=== PATIENT | female | born 1960 | race Caucasian/White ===

== ENCOUNTER 2017-01-04 08:03 | Day surgery (SDC) | payer MEDICARE, OTHER ==
--- NOTE | ~2017-01-04 | EGD ---
EGD REPORT [facility] [address] [address] NAME: PHYLLIS MOTLEY : 60 STATUS : REG [facility] PAT#: [id number] AGE: 56 ADM/REG DATE : 01/04/17 MR#: [id number] REPORT SERV DATE: 01/04/17 DICTATED BY: SABINO TRAYLOR DATE: 01/04/17 REPORT STATUS : Draft [facility]ANSCRIBED [facility]: [facility] DATE: 01/04/17 Endoscopy Center Patient Name: Phyllis Motley Date of : 1960 Attending MD: SABINO TRAYLOR MD Procedure Date No Time: 01/04/2017 Procedure: Upper GI endoscopy Indications: Dysphagia, Esophageal reflux Referring MD: Rossi HENSON MD Medicines: Monitored Anesthesia Care Complications: No immediate complications. Procedure: Pre-Anesthesia Assessment: - ASA Grade Assessment: III - A patient with severe systemic disease. After obtaining informed consent, the endoscope was passed under direct vision. Throughout the procedure, the patient's blood pressure, pulse, and oxygen saturations were monitored continuously. The GIF [id number] was introduced through the mouth, and advanced to the second part of duodenum. The upper GI endoscopy was accomplished without difficulty. The patient tolerated the procedure well. Findings: No endoscopic abnormality was evident in the esophagus to explain the patient's complaint of dysphagia. It was decided, however, to proceed with dilation of the entire esophagus. A guidewire was placed and the scope was withdrawn. Dilation was performed with a Savary dilator with no resistance at 48 Fr. Estimated blood loss: none. Patchy moderately erythematous mucosa without bleeding was found in the gastric antrum. Biopsies were taken with a cold forceps for histology. A single 8 mm pedunculated polyp with no stigmata of recent bleeding was found in the gastric body. Biopsies were taken with a cold forceps for histology. The first part of the duodenum and 2nd part of the duodenum were normal. The cardia and gastric fundus were normal on retroflexion. Impression: - No endoscopic esophageal abnormality to explain patient's dysphagia. Esophagus dilated. Dilated. - Erythematous mucosa in the antrum. Biopsied. - A single gastric polyp. Biopsied. - Normal first part of the duodenum and 2nd part of the duodenum. Recommendation: - Follow an antireflux regimen. EGD REPORT [address] [place]. [address] NAME: PHYLLIS MOTLEY : 60 STATUS : [facility] PAT#: [id number] AGE: 56 ADM/REG DATE : 01/04/17 MR#: [id number] REPORT SERV DATE: 01/04/17 DICTATED BY: SABINO TRAYLOR DATE: 01/04/17 REPORT STATUS : Draft TRANSCRIBED BY: [employer] DATE: 01/04/17 - Discontinue Reglan (metoclopramide). - Await pathology results. - Return to GI clinic in 2 months. Procedure Code(s): --- Professional --- 46802, Esophagogastroduodenoscopy, flexible, transoral; with insertion of guide wire followed by passage of dilator(s) through esophagus over guide wire 14356, Esophagogastroduodenoscopy, flexible, transoral; with biopsy, single or multiple Diagnosis Code(s): --- Professional --- R13.10, Dysphagia, unspecified K31.9, Disease of stomach and duodenum, unspecified K31.7, Polyp of stomach and duodenum K21.9, Gastro-esophageal reflux disease without esophagitis CPT copyright 2013 [employer]. All rights reserved. The codes documented in this report are preliminary and upon dental appliance mechanic review may be revised to meet current compliance requirements. SABINO TRAYLOR MD 01/04/2017 10:54 AM This report has been signed electronically. Number of Addenda: 0 Note Initiated On: 01/04/2017 10:34 AM Scope Withdrawal Time 0 hours 0 minutes 0 seconds [address] [place] [address]
[~2017-01-04 08:03] MED LIST: *UNABLE1; ALEVE220 MG PO; AMOXICILLIN PO; ASA5GR PO; ASAB PO; AT25 PO; BENTYL10 PO; BUDESONIDE INH; CALCIUM PO; CALTRA600D PO; CALTRAT600 PO; CELEXA20 PO; CENTRUM TAB1 TAB PO; COREG3 PO; COZ25 PO; COZ50 PO; DEP250 PO; DYMISTA NASAL S23 GM NAS; FLEX PO; FORMOTEROL INH; HALF81 PO; HUMALOG SC; HUMALOGPEN SC; IBU-200200 MG PO; IBU800 PO; LANTUS SC; LEVEMFLXPN SC; LEVEMIR SC; LEVSINTAB PO; LOP50 PO; LORT7 PO; MULTIVIT/MIN PO; NEUR100 PO; NITROSTAT0.4 MG SL; NORCO1 TA1 PO; NORCO1 TA2 PO; NOVOLOG SC; OTC MELATONIN PO; P20 PO; PANTOPRAZOLE PO; PCET PO; PLAVIX PO; PR12.5 PO; PRILO PO; PROAIR HFA INH; PROBIOTIC OTC PO; PROTONIX PO; RECLAST; RECLAST IV; REG PO; REG5 PO; RESTORIL30 MG OR; RESTORIL30 MG PO; SEROQUEL1C PO; SEROQUEL50 MG PO; SYMBICORT 160/41 INH INH; SYMBICORT INHALER INH; TOUJEO SQ; TRIAMCINOLON0.025 % TOP; WELLBUTRIN200 MG PO; WELLSR150 PO; X5 PO; XANAX1 MG PO; ZETIA PO; ZOCOR10 PO; ZOCOR20 PO; ZOFRAN ODT4 MG PO; [UNRECOGNIZED DRUG - OTHER] PO; [UNRECOGNIZED DRUG - OTHER] PO; [UNRECOGNIZED DRUG - OTHER] PO
== END 2017-01-04 23:59 | disposition home or self-care (01) ==
LOC: DMU 08:03
PROVIDERS: Internal Medicine Gastroenterology
PROC: 0D758ZZ Dilation of Esophagus, Via Natural or Artificial Opening Endoscopic (ICD-10-PCS; principal; 2017-01-04 09:30)
PROC: 0DB68ZX Excision of Stomach, Via Natural or Artificial Opening Endoscopic, Diagnostic (ICD-10-PCS; 2017-01-04 09:30)
DX: K31.7 Polyp of stomach and duodenum (principal); K21.9 Gastro-esophageal reflux disease without esophagitis; K31.9 Disease of stomach and duodenum, unspecified; I10 Essential (primary) hypertension; I69.311 Memory deficit following cerebral infarction; E11.9 Type 2 diabetes mellitus without complications; J45.909 Unspecified asthma, uncomplicated; F41.9 Anxiety disorder, unspecified; F32.9 Major depressive disorder, single episode, unspecified; F44.4 Conversion disorder with motor symptom or deficit; Z87.891 Personal history of nicotine dependence; Z91.048 Other nonmedicinal substance allergy status; Z79.82 Long term (current) use of aspirin; Z79.4 Long term (current) use of insulin; Z79.899 Other long term (current) drug therapy
CPT/HCPCS: 82962; 88305; A9270-GY; J2405

== ENCOUNTER 2017-01-14 23:25 | Inpatient (IN) | payer MEDICARE, OTHER ==
--- NOTE | ~2017-01-14 | DS ---
Discharge Summary [facility] [address] [place]. [address] NAME: GARCIA MOTLEY : 60 STATUS : [facility]#: [id number] AGE: 56 ADM/REG DATE : 01/15/17 MR#: [id number] REPORT SERV DATE: 01/20/17 DICTATED BY: VENUS MORIN DATE: 01/20/17 REPORT STATUS : Draft TRANSCRIBED BY: MODL DATE: 01/20/17 ADMISSION DATE: 01/15/2017 DISCHARGE DATE: 01/20/2017 DIAGNOSES ON ADMISSION: 1. Severe intractable nausea and vomiting. 2. Diarrhea. 3. Abdominal pain. 4. Mildly elevated lipase. 5. Insulin-dependent diabetes mellitus with hyperglycemia. 6. Hypertension. 7. Gastroparesis secondary to diabetes. 8. Gastroesophageal reflux disease. 9. History of bipolar disorder with conversion disorder. 10.Depression and anxiety. DIAGNOSES ON DISCHARGE: 1. Nausea and vomiting present on admission resolved secondary to gastroenteritis. Diarrhea present on admission resolved. 2. Abdominal pain, improved. 3. Mildly elevated lipase, improved next day. 4. Insulin-dependent diabetes. Blood sugars improved. 5. Hypertension, controlled. 6. Gastroparesis secondary to diabetes, resolved. 7. History of bipolar disorder with conversion disorder, improved. 8. Anxiety, improved. CONSULTANTS ON THE CASE: Motor Vehicle Emissions Inspector, Dr. Jakob Parr. Nurse practitioner, Kiran. IMAGING STUDIES DONE DURING THIS HOSPITALIZATION: CT of the brain without contrast done on admission, unremarkable CT of the head, no acute intracranial pathology. CT of the abdomen and pelvis without contrast done on 01/14/2017 did not show any acute abdominal or pelvic pathology. No obstruction pattern. Stable postsurgical changes of appendectomy and hysterectomy. Ultrasound of the abdomen done on 01/17/2017 showed small cholesterol polyp in the gallbladder, filling defect in the liver, probable benign hemangioma. If there is a need for further verification, an MRI or CT dynamic study was recommended, otherwise no any abnormality. HISTORY OF PRESENT ILLNESS: Per dictation of Dr. Potter on 01/14/2017. HOSPITAL COURSE: Briefly, the patient was started on IV fluid hydration on admission. Her lipase on admission was 700, came down to 331. The patient was still having nausea and vomiting episodes, as well as she has anxiety and bipolar disorder. She had also diarrhea. GI evaluated this patient, was seen by Dr. Parr who thinks that the patient had Discharge Summary [facility] [address] [place]. [address] NAME: GARCIA MOTLEY : 60 STATUS : ADM IN PAT#: [id number] AGE: 56 ADM/REG DATE : 01/15/17 MR#: [id number] REPORT SERV DATE: 01/20/17 DICTATED BY: VENUS MORIN DATE: 01/20/17 REPORT STATUS : Draft TRANSCRIBED BY: [employer] DATE: 01/20/17 gastroenteritis more likely a viral and nurse practitioner of Gastroenterology, Kiran was following the patient on a daily basis. The patient improved on 01/18/2017. Her diet was advanced. Yesterday, she told me she would like to wait one more day because she was still having nausea, but today, she significantly improved and she wants to go home. Her abdominal studies were negative and she improved. She was started on Questran and her diarrhea improved. Stool studies have been negative for any infection, so she is doing well and would recommend to continue Questran as well as Bentyl for a possible abdominal spasms, and I wrote a prescription for Phenergan. The patient's blood sugar initially was low because she was not eating much but now, she started to eat and blood sugar today in 190s. I told the patient that at home she uses higher dose of insulin, but she is starting to eat better, so I recommended to start from 5 units of Humalog before meals and increase it gradually depending on the blood sugar as well as I recommended to decrease the dose of her home Toujeo long-acting insulin to 15 units daily and then, she can increase the dose gradually to her home dose depending on the blood sugar. She needs to follow up with Dr. Granados in a week for further adjustment of her insulin as well as followup for Dr. Romero in two to three weeks for evaluation of her possible liver hemangioma on the ultrasound on the abdomen, which was done inpatient. DISCHARGE MEDICATIONS: Carvedilol 6.25 p.o. twice a day; Bentyl 20 mg p.o. b.i.d. before breakfast and supper; cholestyramine 4 mg p.o. at bedtime; decrease Toujeo to 15 units a day; losartan 25 mg daily; melatonin 3 mg at bedtime; simvastatin 20 mg a day; Florastor one capsule p.o. twice a day; decrease Humalog to 5 units before meals; Xanax 0.5 mg three times daily p.r.n. for anxiety; Zofran 4 mg p.o. three times daily p.r.n. for nausea; Phenergan 12.5 p.o. q.6 hours p.r.n. for nausea, total of 20 pills, no refills, given prescription; hydrocodone with acetaminophen 7.5/325 one tablet p.o. four times daily p.r.n. for pain, it is her home medications that she will continue at home. Prescription given for Protonix 40 mg daily, cholestyramine 4 mg p.o. at bedtime, Bentyl 20 mg p.o. before breakfast and supper, and Phenergan 12.5 p.o. q.4 hours p.r.n. for nausea. The patient was discharged in stable condition. I spent 45 minutes on discharge. MG/MODL Venus Morin M.D. / [id number] CC: Bentley Juarez M.D. James Scott Manton, M.D.
--- NOTE | ~2017-01-14 | HP ---
History And Physical [facility] [address] [facility] [address]. [address] NAME: GARCIA MOTLEY : 60 STATUS : ADM [facility] PAT#: [id number] AGE: 56 ADM/REG DATE : 01/14/17 MR#: [id number] REPORT SERV DATE: 01/15/17 DICTATED BY: SINAI OVALLES DATE: 01/15/17 REPORT STATUS : Draft TRANSCRIBED BY: MODL DATE: 01/15/17 DATE OF ADMISSION: 01/14/2017 CHIEF COMPLAINT: Intractable nausea, vomiting, diarrhea, and abdominal pain. HISTORY OF PRESENT ILLNESS: This is a 56-year-old female with history of diabetic gastroparesis neuropathy and other complications from diabetes, poorly controlled insulin- dependent diabetes, presents to the emergency room at [facility] with the above-mentioned complaint. History is obtained from the patient and reviewing data available on the [employer] system. According to Mrs. Motley, she had been in the usual state of health until last week when she had nausea, vomiting, and diarrhea last week. She saw her physician Dr. Humble Granados, who put her on oral Phenergan and this subsided. She was doing fine since then, went back to her activities of daily living. Then again about two days ago, she started having severe nausea and vomiting which was intractable. Yesterday, she started having diarrhea as well which she describes as watery, not foul smelling without any blood. She says she went numerous times and has become very tired and weak, unable to do anything. Meanwhile the vomiting is also continued which is actually bilious without any blood as well. This was also accompanied by upper abdominal pain. She finally decided to come to the emergency room to be evaluated. In the emergency room, initial workup including CT scan of her abdomen and pelvis were within normal limits. She had an elevated lipase of 783. All her stool studies including stool for Clostridium difficile, Cryptosporidium, and Giardia were all negative. She was given multiple intravenous doses of Zofran and continues to vomit. She was given a bolus of fluids and Hospitalist Service is asked to admit her for further evaluation and treatment. At the time of my evaluation, she continued to have nausea and vomiting with diarrhea. She also had abdominal pain. She denied any chest pain, palpitations, or orthopnea. She had no cough, hemoptysis, night sweats, or weight loss. She has not had any recent falls or loss of consciousness. Denied any fevers, chills, and dysuria. She denied any hematemesis, hematochezia, or hematuria. No other history of recent travel or exposures other than those mentioned above. PAST MEDICAL HISTORY: Significant for history of poorly controlled insulin-dependent diabetes mellitus, gastroparesis secondary to diabetes neuropathy, gastroesophageal reflux disease, depression and anxiety, bipolar disease with conversion disorder, and history of CVA in the past as well. SOCIAL HISTORY: She does not smoke, drink, or use recreational drugs per the patient. FAMILY HISTORY: Noncontributory. MEDICATIONS: At home were reviewed by me in the chart today and reordered by me. History And Physical [address] [address] NAME: GARCIA MOTLEY : 60 STATUS : ADM [facility] PAT#: [id number] AGE: 56 ADM/REG DATE : 01/14/17 MR#: [id number] REPORT SERV DATE: 01/15/17 DICTATED BY: SINAI OVALLES DATE: 01/15/17 REPORT STATUS : Draft TRANSCRIBED BY: ALEJANDRO DATE: 01/15/17 REVIEW OF SYSTEMS: Review of systems is as in history of present illness. All other systems were reviewed in detail and are quite unremarkable. PHYSICAL EXAMINATION: GENERAL: This is a pleasant 56-year-old, not in any acute distress. She appears very weak and tired. HEENT: Head is atraumatic, normocephalic. She is alert, awake, and oriented to time, place, and person. Pupils are equal, reacting to light and accommodating. External ocular muscles are intact. Membranes are moist and pink. Sclerae are nonicteric. NECK: Supple with no jugular venous distention, lymphadenopathy, or thyromegaly. LUNGS: Clear to auscultation with no wheezes, rubs, or crackles. HEART: Heart sounds were regular with no murmurs, rubs, or gallops. ABDOMEN: Soft, nontender. Bowel sounds are present. EXTREMITIES: Showed no cyanosis, clubbing, or edema. NEUROLOGIC: Grossly intact. No focal sensory or motor deficits. Higher functions appeared intact. Gait was not examined today at this time. VITAL SIGNS: Her vital signs today showed a temperature of 100.6, pulse 115, respirations 20 a minute, and blood pressure upon arrival was 98/66. Oxygen saturations were 95% breathing 2 L of oxygen via nasal cannula. LABORATORY DATA: Reviewed on the [employer] system showed a normal CMP with a blood glucose of 201, albumin was 3.3, alkaline phosphatase was 75, ALT 19, AST was 12, and lipase today was 783. Lactate was 1.4 today. CBC was essentially within normal limits. Urinalysis was unremarkable today. Films of the CT scan of the brain and CT of the abdomen were reviewed by me on the PACS today and interpreted by me. Per my interpretation, there is no acute intracranial or pelvic pathology at this time and the CT of the brain did not reveal any acute intracranial pathology at this time. Please see Radiology report for details. IMPRESSION: 1. Severe intractable nausea and vomiting. 2. Diarrhea. 3. Abdominal pain. 4. Elevated lipase. 5. Insulin-dependent diabetes mellitus with hyperglycemia. 6. Hypertension. 7. Gastroparesis secondary to diabetes. 8. Gastroesophageal reflux disease. 9. Bipolar disease with conversion disorder. 10.Depression and anxiety. PLAN: We will admit Ms. Motley to the Hospitalist Service for a 24-hour observation period. We will start her on aggressive volume replacement, give her a liter of lactated Ringer's bolus and continue on with normal saline as well. For her intractable nausea and vomiting, History And Physical [address] [address] NAME: GARCIA MOTLEY : 60 STATUS : ADM [facility] PAT#: [id number] AGE: 56 ADM/REG DATE : 01/14/17 MR#: [id number] REPORT SERV DATE: 01/15/17 DICTATED BY: SINAI OVALLES DATE: 01/15/17 REPORT STATUS : Draft TRANSCRIBED BY: MODL DATE: 01/15/17 we will continue IV Zofran as needed, but give her 6.25 of Phenergan intravenously on an as needed basis as well. We will also go ahead and consult Dr. Romero, her tool die maker and follow lipase levels in the morning. For pain control, we will start her on intravenous Dilaudid in small doses as needed. All stool studies were negative today as mentioned above. Hemoccult was negative on the stools as well. We will start her on unfractionated heparin for DVT prophylaxis and follow her closely. I have discussed the above plans with the patient. Her questions were answered, and she is agreeable to the above recommendations. Hospitalist Service will be following her during her stay here. Further recommendations will follow after Dr. Romero has had a chance to see Mrs. Motley. /MODL Sinai Ovalles M.D. / [id number] CC: Bentley Cardenas M.D.
--- NOTE | ~2017-01-14 | CN ---
Consultation Report [facility] [address] [place]. [address] NAME: GARCIA MOTLEY : 60 STATUS : ADM IN PAT#: [id number] AGE: 56 ADM/REG DATE : 01/15/17 MR#: [id number] REPORT SERV DATE: 01/15/17 DICTATED BY: JAKOB PARR DATE: 01/15/17 REPORT STATUS : Draft TRANSCRIBED BY: MODL DATE: 01/15/17 CONSULTATION DATE OF CONSULTATION: 01/15/2017 REASON FOR CONSULTATION: Nausea, vomiting, diarrhea, and abdominal pain. HISTORY OF PRESENT ILLNESS: Ms Motley is a 56-year-old woman with a known history of gastroparesis who has been followed by Dr. Romero in the past. She had been treated with Reglan but has caused dysphagia. She most recently underwent an upper endoscopy earlier this month. The patient reports she has been having some chronic diarrhea that is going for a while, though this significantly ramped up in the last week associated with intractable nausea and vomiting and abdominal pain. The pain is diffusely in the upper abdomen and feels like cramping. She reports her grandson has also been sick. She reports she developed so much dehydration from this that she had a syncopal episode at home. She presented here where CT scan was done, which was a noncontrast CT, was essentially unremarkable. She was noted to have an elevated lipase of 700 with otherwise normal liver enzymes and creatinine is 0.9. Her white blood cell count on admission was 8.7. C difficile was negative as was the stool Giardia antigen. The patient continues to have symptoms as reported, has had six bowel movements this morning. PAST MEDICAL HISTORY: Includes diabetes mellitus, gastroparesis, chronic diarrhea, history of bipolar, history of stroke in the past. SOCIAL HISTORY: She denies any current tobacco or alcohol use. FAMILY HISTORY: She denies any family history of GI malignancy, but again, she does report her grandson was sick. REVIEW OF SYSTEMS: A 14-point review of systems reviewed and was otherwise negative unless mentioned in the HPI. PHYSICAL EXAMINATION: VITAL SIGNS: Currently, temperature of 98.9 with a heart rate of 85, blood pressure 100/61, O2 saturation is 95% on 2.5 L. GENERAL: The patient was lying in bed, in no apparent distress. She is mildly sleepy but was fully conversant. HEENT: Her head was atraumatic and normocephalic. Her sclerae were nonicteric. Her conjunctivae were clear. NECK: Revealed no crepitus, thyromegaly. LUNGS: Clear to auscultation bilaterally. CARDIOVASCULAR: Regular rate and rhythm. ABDOMEN: Nontender, though is very mildly distended but it was soft. Consultation Report [place] [address] [facility] [place] [address] NAME: GARCIA MOTLEY : 60 STATUS : ADM IN PAT#: [id number] AGE: 56 ADM/REG DATE : 01/15/17 MR#: [id number] REPORT SERV DATE: 01/15/17 DICTATED BY: JAKOB PARR DATE: 01/15/17 REPORT STATUS : Draft TRANSCRIBED BY: ALEJANDRO DATE: 01/15/17 EXTREMITIES: Revealed no clubbing, cyanosis, or edema. She had normoactive bowel sounds. SKIN: Revealed no gross skin nodules or lesions. NEUROLOGIC: She had no tremor or asterixis. PSYCHIATRIC: She is alert and oriented x3 with a proper affect and mood. LABORATORY EVALUATION: Mentioned in the HPI. Ultrasound in the fall was negative. IMPRESSION AND PLAN: 1. Nausea and vomiting. 2. Gastroparesis. 3. Abdominal pain. 4. Diarrhea. I suspect this is an acute exacerbation of the patient's underlying gastroparesis and irritable bowel syndrome, likely infectious mediated viral, less likely bacteria. Agree with checking stool studies for culture. Clostridium difficile and O and P already are negative. Otherwise for now, would continue supportive care. The patient has undergone both upper and lower endoscopy within the last six months, I would not repeat these at this time unless further indication. Thank you for allowing me to evaluate the patient. Please do not hesitate to contact me should you have any further concerns or questions. GO/MODL Jakob Parr MD / [id number] CC: Bentley Juarez M.D.
[2017-01-14 23:24] LABS: BASOPHILS 0.1 %; BASOPHILS ABSOLUTE 0.01 10/3/uL (0.0-0.16); EOSINOPHILS 0.5 %; EOSINOPHILS ABSOLUTE 0.04 10/3/uL (0.0-0.53); ER CBC TAT 0 Hrs 13 Mins; HEMATOCRIT 43.1 % (36.0-48.0); HEMOGLOBIN 14.7 g/dL (12.0-16.0); IMMATURE GRANULOCYTES 0.5 %; IMMATURE GRANULOCYTES ABSOLUTE 0.04 10/3/uL (0.0-0.11); LYMPHOCYTES 6.2 %; LYMPHOCYTES ABSOLUTE 0.54 10/3/uL (0.67-4.30); MEAN CORPUS HGB CONC 34.1 g/dL (32.0-36.0); MEAN CORPUSCULAR HEMOGLOB 29.3 pg (26.0-34.0); MEAN PLATELET VOLUME 9.5 fL (9.2-13.0); MONOCYTES 5.3 %; MONOCYTES ABSOLUTE 0.46 10/3/uL (0.21-1.20); NEUTROPHILS 87.4 %; PLATELET COUNT 247 10/3/uL (150-400); RBC DISTRIBUTION WIDTH 13.2 % (12.0-16.0); RED CELL COUNT 5.02 10/6/uL (4.0-5.6); WHITE BLOOD CELLS 8.7 10/3/uL (4.5-10.5)
[2017-01-14 23:30] LABS: MANUAL DIFF NO %; MEAN CORPUSCULAR VOLUME 85.9 fL (80-100)
[2017-01-14 23:32] LABS: ASCORBIC ACID (UR NOT ORDER) NEG (NEG); BILIRUBIN, URINE NEGATIVE (NEG); ER URINALYSIS TAT 0 Hrs 00 Mins; KETONE, URINE TRACE MG/DL (NEG); LEUKOCYTE ESTERASE(NOT OR NEG (NEG); NITRITE (URINE) NEG (NEG); WBC (NOT ORDERED) (RFLEX) 4 (0-5)
[2017-01-14 23:37] LABS: A/G RATIO 0.9 (0.7-1.9); ALBUMIN 3.3 G/DL (3.5-5.0); ALKALINE PHOSPHATASE 75 U/L (45-117); CHLORIDE, SERUM 104 MMOL/L (96-112); CO2 (CARBON DIOXIDE) 25 MMOL/L (24-34); GFR AFRICAN AMERICAN 83 ML/MIN (>=60); GFR NON AFRICAN AMERICAN 71 ML/MIN (>=60); GLOBULIN 3.7 G/DL (2.5-4.1); POTASSIUM, SERUM 3.9 MMOL/L (3.5-5.3); SGOT(AST) 12 U/L (5-40); SGPT(ALT) 19 U/L (5-65); SODIUM, SERUM 140 MMOL/L (135-148)
[2017-01-14 23:38] LABS: BUN (BLOOD UREA NITROGEN) 13 MG/DL (6-23); GLUCOSE, SERUM 201 MG/DL (60-99); TOTAL BILIRUBIN 0.4 MG/DL (0-1.2)
[2017-01-14 23:42] LABS: LACTATE 1.4 MMOL/L (0.3-2.4)
[2017-01-15] MEDS ORDERED: HUMALOGPEN SC (02:01)
[2017-01-15] MEDS ORDERED: TOUJEO SC (02:01)
[2017-01-15] MEDS ORDERED: X5 PO (02:02)
[2017-01-15] MEDS ORDERED: ZOFRAN4 PO (02:20)
[2017-01-15] MEDS ORDERED: MELA3 PO (02:20)
[2017-01-15] MEDS ORDERED: ZOCOR20 PO (02:20)
[2017-01-15] MEDS ORDERED: PR12.5 PO (02:21)
[2017-01-15] MEDS ORDERED: COREG6 PO (02:21)
[2017-01-15] MEDS ORDERED: COZ25 PO (02:21)
[2017-01-15] MEDS ORDERED: BIOFREEZE TOP (02:22)
[2017-01-15] MEDS ORDERED: NORCO1 TA2 PO (02:22)
[2017-01-15 05:41] LABS: HEMOGLOBIN 12.1 g/dL (12.0-16.0); MEAN CORPUS HGB CONC 33.7 g/dL (32.0-36.0); MEAN CORPUSCULAR HEMOGLOB 29.2 pg (26.0-34.0); MEAN CORPUSCULAR VOLUME 86.7 fL (80-100); PLATELET COUNT 237 10/3/uL (150-400); RBC DISTRIBUTION WIDTH 13.5 % (12.0-16.0); RED CELL COUNT 4.14 10/6/uL (4.0-5.6); WHITE BLOOD CELLS 6.2 10/3/uL (4.5-10.5)
[2017-01-15 05:44] LABS: HEMATOCRIT 35.9 % (36.0-48.0); MANUAL DIFF YES %
[2017-01-15 05:55] LABS: BUN (BLOOD UREA NITROGEN) 13 MG/DL (6-23); CALCIUM, SERUM 7.3 MG/DL (8.5-10.4); CHLORIDE, SERUM 107 MMOL/L (96-112); CO2 (CARBON DIOXIDE) 27 MMOL/L (24-34); CREATININE 0.77 MG/DL (0.55-1.02); GFR AFRICAN AMERICAN 100 ML/MIN (>=60); GFR NON AFRICAN AMERICAN 86 ML/MIN (>=60); GLUCOSE, SERUM 207 MG/DL (60-99); PHOSPHORUS, SERUM 2.7 MG/DL (2.5-4.5); POTASSIUM, SERUM 4.2 MMOL/L (3.5-5.3); SODIUM, SERUM 142 MMOL/L (135-148)
[2017-01-15 06:21] LABS: BAND NEUTROPHILS 7 %; LYMPHOCYTES 9 %; LYMPHOCYTES ABSOLUTE (CALC) 0.56 10/3/uL (0.67-4.30); MONOCYTES 3 %; MONOCYTES ABSOLUTE (CALC) 0.06 10/3/uL (0.21-1.20); NEUTROPHILS ABSOLUTE (CALC) 5.58 10/3/uL (2.02-8.40); SEGMENTED NEUTROPHIL (0) 81 %; TOTAL NUCLEATED CELLS 100
[2017-01-15 06:22] LABS: ANISOCYTOSIS 1+ (5-10/OIF) (0-5/OIF); ELLIPTOCYTES 1+ (3-10/OIF) (0-2/OIF); PLATELET ESTIMATE ADQ (ADEQUATE)
[2017-01-16 05:54] LABS: BUN (BLOOD UREA NITROGEN) 6 MG/DL (6-23); CALCIUM, SERUM 7.2 MG/DL (8.5-10.4); CHLORIDE, SERUM 115 MMOL/L (96-112); CO2 (CARBON DIOXIDE) 21 MMOL/L (24-34); CREATININE 0.61 MG/DL (0.55-1.02); GFR AFRICAN AMERICAN 117 ML/MIN (>=60); GFR NON AFRICAN AMERICAN 101 ML/MIN (>=60); GLUCOSE, SERUM 76 MG/DL (60-99); POTASSIUM, SERUM 4.2 MMOL/L (3.5-5.3); SODIUM, SERUM 145 MMOL/L (135-148)
[2017-01-17 05:02] LABS: BUN (BLOOD UREA NITROGEN) 3 MG/DL (6-23); CALCIUM, SERUM 7.1 MG/DL (8.5-10.4); CHLORIDE, SERUM 112 MMOL/L (96-112); CO2 (CARBON DIOXIDE) 22 MMOL/L (24-34); CREATININE 0.62 MG/DL (0.55-1.02); GFR AFRICAN AMERICAN 117 ML/MIN (>=60); GFR NON AFRICAN AMERICAN 101 ML/MIN (>=60); POTASSIUM, SERUM 3.9 MMOL/L (3.5-5.3); SODIUM, SERUM 143 MMOL/L (135-148)
[2017-01-17 05:04] LABS: GLUCOSE, SERUM 227 MG/DL (60-99)
[2017-01-17 10:14] LABS: ALBUMIN 2.6 G/DL (3.5-5.0); ALKALINE PHOSPHATASE 46 U/L (45-117); DIRECT BILIRUBIN < 0.1 MG/DL (0.0-0.4); SGOT(AST) 17 U/L (5-40); SGPT(ALT) 14 U/L (5-65); TOTAL BILIRUBIN 0.1 MG/DL (0-1.2); TOTAL PROTEIN 5.3 G/DL (6.0-8.5)
[2017-01-18 04:45] LABS: BASOPHILS 0.5 %; BASOPHILS ABSOLUTE 0.02 10/3/uL (0.0-0.16); EOSINOPHILS 0.8 %; EOSINOPHILS ABSOLUTE 0.03 10/3/uL (0.0-0.53); HEMATOCRIT 33.3 % (36.0-48.0); HEMOGLOBIN 11.4 g/dL (12.0-16.0); IMMATURE GRANULOCYTES 0.3 %; IMMATURE GRANULOCYTES ABSOLUTE 0.01 10/3/uL (0.0-0.11); LYMPHOCYTES ABSOLUTE 1.42 10/3/uL (0.67-4.30); MEAN CORPUS HGB CONC 34.2 g/dL (32.0-36.0); MEAN CORPUSCULAR VOLUME 84.7 fL (80-100); MEAN PLATELET VOLUME 9.4 fL (9.2-13.0); NEUTROPHILS 48.4 %; NEUTROPHILS ABSOLUTE 1.86 10/3/uL (2.02-8.40); PLATELET COUNT 209 10/3/uL (150-400); RBC DISTRIBUTION WIDTH 13.2 % (12.0-16.0); RED CELL COUNT 3.93 10/6/uL (4.0-5.6); WHITE BLOOD CELLS 3.8 10/3/uL (4.5-10.5)
[2017-01-18 04:47] LABS: MANUAL DIFF NO %
[2017-01-18 04:56] LABS: BUN (BLOOD UREA NITROGEN) 2 MG/DL (6-23); CALCIUM, SERUM 7.7 MG/DL (8.5-10.4); CHLORIDE, SERUM 106 MMOL/L (96-112); CO2 (CARBON DIOXIDE) 26 MMOL/L (24-34); CREATININE 0.62 MG/DL (0.55-1.02); GFR AFRICAN AMERICAN 117 ML/MIN (>=60); GFR NON AFRICAN AMERICAN 101 ML/MIN (>=60); GLUCOSE, SERUM 200 MG/DL (60-99); POTASSIUM, SERUM 3.3 MMOL/L (3.5-5.3); SODIUM, SERUM 141 MMOL/L (135-148)
[2017-01-19 04:33] LABS: BUN (BLOOD UREA NITROGEN) 3 MG/DL (6-23); CALCIUM, SERUM 7.5 MG/DL (8.5-10.4); CHLORIDE, SERUM 105 MMOL/L (96-112); CO2 (CARBON DIOXIDE) 24 MMOL/L (24-34); CREATININE 0.69 MG/DL (0.55-1.02); GFR AFRICAN AMERICAN 113 ML/MIN (>=60); GFR NON AFRICAN AMERICAN 97 ML/MIN (>=60); GLUCOSE, SERUM 218 MG/DL (60-99); POTASSIUM, SERUM 3.6 MMOL/L (3.5-5.3); SODIUM, SERUM 141 MMOL/L (135-148)
[2017-01-20 05:14] LABS: BUN (BLOOD UREA NITROGEN) 4 MG/DL (6-23); CALCIUM, SERUM 7.7 MG/DL (8.5-10.4); CHLORIDE, SERUM 106 MMOL/L (96-112); CO2 (CARBON DIOXIDE) 24 MMOL/L (24-34); CREATININE 0.63 MG/DL (0.55-1.02); GFR AFRICAN AMERICAN 116 ML/MIN (>=60); GFR NON AFRICAN AMERICAN 100 ML/MIN (>=60); GLUCOSE, SERUM 197 MG/DL (60-99); POTASSIUM, SERUM 3.7 MMOL/L (3.5-5.3); SODIUM, SERUM 140 MMOL/L (135-148)
[2017-01-20] MEDS ORDERED: QUESLITE PO (14:27)
[2017-01-20] MEDS ORDERED: BENTYL20 PO (14:29)
[2017-01-20] MEDS ORDERED: TOUJEO SC (15:34)
[2017-01-20] MEDS ORDERED: HUMALOGPEN SC (15:37)
== END 2017-01-20 16:37 | disposition home or self-care (01) | DRG 74 ==
LOC: ER 23:25 → 3JRC 23:59
PROVIDERS: Emergency Medicine; Hospitalist; Internal Medicine Pulmonary Disease
DX: E10.43 Type 1 diabetes mellitus with diabetic autonomic (poly)neuropathy (principal); E10.65 Type 1 diabetes mellitus with hyperglycemia; I10 Essential (primary) hypertension; K52.9 Noninfective gastroenteritis and colitis, unspecified; F31.89 Other bipolar disorder; K31.84 Gastroparesis; K21.9 Gastro-esophageal reflux disease without esophagitis; F41.9 Anxiety disorder, unspecified; Z79.4 Long term (current) use of insulin; Z86.73 Personal history of transient ischemic attack (TIA), and cerebral infarction without residual deficits; Z88.8 Allergy status to other drugs, medicaments and biological substances; Z88.5 Allergy status to narcotic agent; Z79.899 Other long term (current) drug therapy
CPT/HCPCS: 70450; 74176; 76700; 80048; 80053; 80076; 81001; 82962; 83605; 83690; 83735; 84100; 84132; 85025; 87040; 87045; 87046; 87046-59; 87328; 87329; 87493; 87493-59; 87899; 87899-59; 89055; 96374; 96375; 96376; 99285; A9270-GY; C9113; J1170; J2405; J2550

== ENCOUNTER 2017-04-04 10:35 | Emergency (ER) | payer MEDICARE, OTHER ==
[2017-04-04 10:14] LABS: BASOPHILS 0.2 %; BASOPHILS ABSOLUTE 0.02 10/3/uL (0.0-0.16); EOSINOPHILS 0.9 %; EOSINOPHILS ABSOLUTE 0.08 10/3/uL (0.0-0.53); IMMATURE GRANULOCYTES 0.3 %; IMMATURE GRANULOCYTES ABSOLUTE 0.03 10/3/uL (0.0-0.11); LYMPHOCYTES 19.9 %; LYMPHOCYTES ABSOLUTE 1.75 10/3/uL (0.67-4.30); MEAN CORPUS HGB CONC 34.6 g/dL (32.0-36.0); MEAN CORPUSCULAR HEMOGLOB 29.3 pg (26.0-34.0); MEAN CORPUSCULAR VOLUME 84.6 fL (80-100); MEAN PLATELET VOLUME 9.6 fL (9.2-13.0); MONOCYTES 5.6 %; MONOCYTES ABSOLUTE 0.49 10/3/uL (0.21-1.20); NEUTROPHILS 73.1 %; NEUTROPHILS ABSOLUTE 6.42 10/3/uL (2.02-8.40); PLATELET COUNT 264 10/3/uL (150-400); RBC DISTRIBUTION WIDTH 13.2 % (12.0-16.0)
[2017-04-04 10:15] LABS: ER CBC TAT 0 Hrs 10 Mins; HEMATOCRIT 40.8 % (36.0-48.0); HEMOGLOBIN 14.1 g/dL (12.0-16.0); MANUAL DIFF NO %; RED CELL COUNT 4.82 10/6/uL (4.0-5.6); WHITE BLOOD CELLS 8.8 10/3/uL (4.5-10.5)
[2017-04-04 10:29] LABS: CALCIUM, SERUM 8.6 MG/DL (8.5-10.4); CHLORIDE, SERUM 108 MMOL/L (96-112); CO2 (CARBON DIOXIDE) 28 MMOL/L (24-34); GFR AFRICAN AMERICAN 111 ML/MIN (>=60); GFR NON AFRICAN AMERICAN 96 ML/MIN (>=60); GLUCOSE, SERUM 164 MG/DL (60-99); POTASSIUM, SERUM 3.9 MMOL/L (3.5-5.3); SGOT(AST) 9 U/L (5-40); SGPT(ALT) 14 U/L (5-65); SODIUM, SERUM 142 MMOL/L (135-148); TOTAL BILIRUBIN 0.5 MG/DL (0-1.2)
[2017-04-04 10:30] LABS: A/G RATIO 1.1 (0.7-1.9); ALBUMIN 3.4 G/DL (3.5-5.0); ALKALINE PHOSPHATASE 71 U/L (45-117); BUN (BLOOD UREA NITROGEN) 12 MG/DL (6-23); GLOBULIN 3.2 G/DL (2.5-4.1); TOTAL PROTEIN 6.6 G/DL (6.0-8.5)
[~2017-04-04 10:35] MED LIST changes: +BENTYL20 PO; +BIOFREEZE TOP; +COREG6 PO; +MELA3 PO; +QUESLITE PO; +TOUJEO SC; +ZOFRAN4 PO
== END 2017-04-04 11:41 | disposition home or self-care (01) ==
LOC: ER 10:35
PROVIDERS: Emergency Medicine
DX: R11.2 Nausea with vomiting, unspecified (principal); K21.9 Gastro-esophageal reflux disease without esophagitis; F31.9 Bipolar disorder, unspecified; E11.9 Type 2 diabetes mellitus without complications; Z91.048 Other nonmedicinal substance allergy status; Z86.73 Personal history of transient ischemic attack (TIA), and cerebral infarction without residual deficits; Z88.8 Allergy status to other drugs, medicaments and biological substances; Z79.899 Other long term (current) drug therapy; Z79.4 Long term (current) use of insulin
CPT/HCPCS: 80053; 83690; 85025; 96374; 99284; J1170; J2550